=== PATIENT | male | born 1960 | race Caucasian/White ===

== ENCOUNTER 2016-06-30 10:12 | Emergency (ER) | payer BC ==
[~2016-06-30 10:12] MED LIST: ASAB PO; ATEN25 PO; CO Q-10100 MG PO; COZ25 PO; FISH-EPA1000 MG PO; GLUCPH PO; LOTE20 PO; ZANTAC 150 PO; ZOCOR20 PO; ZYRTEC ALLGY10 MG PO
[2016-06-30 10:52] LABS: BASOPHILS 0.2 %; BASOPHILS ABSOLUTE 0.02 10/3/uL (0.0-0.16); EOSINOPHILS ABSOLUTE 0.12 10/3/uL (0.0-0.53); ER CBC TAT 0 Hrs 05 Mins; HEMATOCRIT 44.4 % (40.0-51.0); HEMOGLOBIN 15.5 g/dL (13.6-17.8); IMMATURE GRANULOCYTES 0.3 %; IMMATURE GRANULOCYTES ABSOLUTE 0.04 10/3/uL (0.0-0.11); LYMPHOCYTES 11.8 %; LYMPHOCYTES ABSOLUTE 1.45 10/3/uL (0.67-4.30); MANUAL DIFF NO %; MEAN CORPUS HGB CONC 34.9 g/dL (32.0-36.0); MEAN CORPUSCULAR VOLUME 80.1 fL (80-100); MEAN PLATELET VOLUME 9.5 fL (9.2-13.0); MONOCYTES 6.3 %; MONOCYTES ABSOLUTE 0.77 10/3/uL (0.21-1.20); NEUTROPHILS 80.4 %; NEUTROPHILS ABSOLUTE 9.85 10/3/uL (2.02-8.40); PLATELET COUNT 271 10/3/uL (150-400); RBC DISTRIBUTION WIDTH 14.6 % (12.0-16.0); RED CELL COUNT 5.54 10/6/uL (4.7-6.1); WHITE BLOOD CELLS 12.3 10/3/uL (4.5-10.5)
[2016-06-30 10:56] LABS: ASCORBIC ACID (UR NOT ORDER) NEG (NEG); BILIRUBIN, URINE NEGATIVE (NEG); ER URINALYSIS TAT 0 Hrs 09 Mins; KETONE, URINE NEGATIVE (NEG); LEUKOCYTE ESTERASE(NOT OR NEG (NEG); NITRITE (URINE) NEG (NEG); WBC (NOT ORDERED) (RFLEX) 3 (0-5)
[2016-06-30 11:08] LABS: A/G RATIO 1.1 (0.7-1.9); ALBUMIN 4.1 G/DL (3.5-5.0); ALKALINE PHOSPHATASE 102 U/L (45-117); BUN (BLOOD UREA NITROGEN) 22 MG/DL (6-23); CALCIUM, SERUM 9.2 MG/DL (8.5-10.4); CHLORIDE, SERUM 102 MMOL/L (96-112); CO2 (CARBON DIOXIDE) 28 MMOL/L (24-34); GFR AFRICAN AMERICAN 88 ML/MIN (>=60); GFR NON AFRICAN AMERICAN 76 ML/MIN (>=60); GLOBULIN 3.6 G/DL (2.5-4.1); GLUCOSE, SERUM 134 MG/DL (60-99); POTASSIUM, SERUM 3.6 MMOL/L (3.5-5.3); SGOT(AST) 41 U/L (5-40); SGPT(ALT) 62 U/L (5-65); SODIUM, SERUM 140 MMOL/L (135-148); TOTAL BILIRUBIN 1.2 MG/DL (0-1.2); TOTAL PROTEIN 7.7 G/DL (6.0-8.5)
== END 2016-06-30 12:49 | disposition home or self-care (01) ==
LOC: ER 10:12
PROVIDERS: Emergency Medicine
DX: N13.2 Hydronephrosis with renal and ureteral calculous obstruction (principal); Z79.82 Long term (current) use of aspirin; Z79.899 Other long term (current) drug therapy
CPT/HCPCS: 74176; 80053; 81001; 83690; 85025; 96374; 99284; J1170; J2405